=== PATIENT | female | born 1990 | race Caucasian/White ===

== ENCOUNTER 2022-07-27 06:09 | Day surgery (SDC) | payer BC ==
[2022-07-22 13:53] LABS: Basophils # (auto) 0.1 10 ^3/uL (0-0.2); Lymphocytes # (auto) 1.4 10 ^3/uL (0.4-5.4); White Blood Cell 12.4 10^3/uL (4.4-10.8)
[2022-07-22 13:54] LABS: Basophils % (auto) 0.9 % (0.0-2.0); Eosinophils # (auto) 0.1 10 ^3/uL (0-0.8); Eosinophils % (auto) 0.5 % (0.0-7.0); Hematocrit 34.1 % (36.0-46.0); Hemoglobin 11.3 g/dL (12.2-16.2); Lymphocytes % (auto) 11.3 % (10.0-50.0); Mean Corpuscular Hemoglobin 28.1 pg (28.0-32.0); Mean Corpuscular Volume 85.1 fL (80.0-100.0); Monocytes # (auto) 0.6 10 ^3/uL (0-1.3); Neutrophils # (auto) 10.2 10 ^3/uL (1.6-8.6); Neutrophils % (auto) 82.3 % (37.0-80.0); Nucleated Red Blood Cells % 0.1 %; Red Blood Cells 4.01 10^6/uL (4.0-5.20); Red Cell Distribution Width 14.2 % (11.8-14.3)
[2022-07-22 14:02] LABS: Urine Bacteria NONE SEEN /hpf (None Seen); Urine Blood 1+ /uL (Negative); Urine Specific Gravity 1.003 (1.001-1.035); Urine WBC <1 /hpf (0 - 5)
[2022-07-22 14:16] LABS: INR 0.96 (0.9-1.15); Partial Thromboplastin Time 33.5 sec (24.6-33.4)
[2022-07-22 14:23] LABS: Albumin 3.6 g/dL (3.4-5.0); Calcium 9.5 mg/dL (8.5-10.1); Potassium 4.4 mmol/L (3.5-5.1)
[2022-07-22 14:26] LABS: BUN/Creatinine Ratio 13.6 (10.0-20.0); Bilirubin, Total 0.3 mg/dL (0.2-1.0); Total Protein 7.9 g/dL (6.4-8.2)
[~2022-07-27] VITALS: Ht 165.1 cm; Wt 61.2 kg
[~2022-07-27 06:09] MED LIST: LOSA-69 PO; MYCO1TAB2 PO; NORG0.257 OR; PRE5T PO; PREN-96 OR; TACR1CAP19 OR
[2022-07-27] MEDS ORDERED: BUPIVACAINE W/ EPINEPH 0.25% INJ 50ML MDV ONE (06:43)
[2022-07-27] MEDS ORDERED: DexAMETHasone SOD PHOS 4 MG/1ML SDV INJ ONE (06:43)
[2022-07-27] MEDS ORDERED: LIDOCAINE W/ EPINEPHRINE 2% INJ 20ML VIAL ONE (06:43)
[2022-07-27] MEDS ORDERED: MIDAZOLAM HCL 2MG/2ML 2ml VIAL (1mg/ml) ONE (06:52)
[2022-07-27] MEDS ORDERED: fentaNYL CITRATE 100 MCG/2 ML VL ONE (06:52)
[2022-07-27] MEDS ORDERED: PROPOFOL 10 MG/ML 20 ML IV ONE ×2 (06:53→07:12)
[2022-07-27] MEDS ORDERED: EPINEPHrine HCL 1 MG/1 ML AMP ONE (06:53)
[2022-07-27] MEDS ORDERED: BUPIVACAINE HCL 0 ML ONE (06:53)
[2022-07-27] MEDS ORDERED: GLYCOPYRROLATE 0.2 MG/ML 1ML VIAL ONE (06:54)
[2022-07-27] MEDS ORDERED: KETOROLAC TROMETH 30 MG/ML 1ML VIAL ONE (06:54)
[2022-07-27] MEDS ORDERED: ONDANSETRON HCL 4 MG/2 ML VIAL ONE (06:54)
[2022-07-27] MEDS ORDERED: DexAMETHasone SOD PHOS 10MG/1ML VIAL INJ ONE (06:54)
[2022-07-27] MEDS ORDERED: LIDOCAINE 2% (LOCAL ANESTH.) PF 5ml SDV ONE (06:54)
[2022-07-27] MEDS ORDERED: ceFAZolin 1GM/50ML 100 ML IV ONE (07:05)
[2022-07-27] MEDS ORDERED: IOHEXOL 300 MG/ML 100ML BOTTLE IJ ONE (07:42)
[2022-07-27] MEDS ORDERED: SODIUM CHLORIDE LOCK 10 ML ONE (07:58)
[2022-07-27] MEDS ORDERED: PHENYLEPHRINE HCL 10 MG/ML VL ONE (07:58)
[2022-07-27] MEDS ORDERED: HYDR1TAB97 PO ×2 (08:59)
[2022-07-27] MEDS ORDERED: fentaNYL CITRATE 100 MCG/2 ML VL IV PRN (09:15)
[2022-07-27] MEDS ORDERED: oxyCODONE HCL 5MG TAB PO PRN (09:15)
[2022-07-27] MEDS ORDERED: ePHEDrine SULFATE 50 MG/ML AMP IV PRN (09:15)
[2022-07-27] MEDS ORDERED: NALOXONE HCL 0.4 MG/ML VIAL IV PRN (09:15)
[2022-07-27] MEDS ORDERED: LABETALOL HCL 5 MG/ML 4ML SYRINGE IV PRN (09:15)
[2022-07-27] MEDS ORDERED: PROMETHAZINE HCL 25 MG/ML 1ML IV ONE (09:15)
[2022-07-27] MEDS ORDERED: hydrALAZINE HCL 20 MG/ML VL IV PRN (09:15)
[2022-07-27] MEDS ORDERED: FLUMAZENIL 0.1 MG/ML INJ 10ML MDV IV PRN (09:15)
[2022-07-27] MEDS ORDERED: ONDANSETRON HCL 4 MG/2 ML VIAL IV PRN (09:15)
[2022-07-27] MEDS ORDERED: HYDROmorphone HCL 2 MG/ML VL/or syr IV PRN (09:15)
[2022-07-27 10:19] VITALS: BP 124/77
[2022-07-27] MEDS ORDERED: HYDR-4072 PO (11:50)
== END 2022-07-27 10:31 | disposition home or self-care (01) ==
LOC: SUR 06:09
PROVIDERS: ATTEND Orthopaedic Surgery Sports Medicine
DX: M87.852 Other osteonecrosis, left femur (principal); I12.0 Hypertensive chronic kidney disease with stage 5 chronic kidney disease or end stage renal disease; N18.6 End stage renal disease; E78.00 Pure hypercholesterolemia, unspecified; Z79.899 Other long term (current) drug therapy; Z99.2 Dependence on renal dialysis
CPT/HCPCS: 27299; 29871; 36415; 73560; 76000; 80053; 81001; 84702; 85025; 85610; 85730; C1713; J0171; J0690; J1100; J1885; J2001; J2250; J2370; J2405; J2704; J3010; Q9967; J3490

== ENCOUNTER → 2023-09-02 | Outpatient (CLI) | payer BC ==
[~2023-09-02] MED LIST changes: +HYDR-4072 PO; +LOSA-534 PO; -LOSA-69 PO
[2023-09-02 07:59] LABS: Urine Bacteria None Seen /hpf (None Seen)
[2023-09-02 08:06] LABS: Basophils # (auto) 0.1 10 ^3/uL (0-0.2); Basophils % (auto) 0.7 % (0.0-2.0); Eosinophils # (auto) 0.4 10 ^3/uL (0-0.8); Eosinophils % (auto) 4.6 % (0.0-7.0); Hematocrit 31.6 % (36.0-46.0); Hemoglobin 11.2 g/dL (12.2-16.2); Lymphocytes # (auto) 3.2 10 ^3/uL (0.4-5.4); Lymphocytes % (auto) 34.8 % (10.0-50.0); Mean Corpuscular Hemoglobin 32.7 pg (28.0-32.0); Mean Corpuscular Hgb Conc. 35.3 g/dL (32.0-36.0); Mean Corpuscular Volume 92.7 fL (80.0-100.0); Monocytes # (auto) 0.9 10 ^3/uL (0-1.3); Monocytes % (auto) 9.4 % (0.0-12.0); Neutrophils # (auto) 4.7 10 ^3/uL (1.6-8.6); Neutrophils % (auto) 50.5 % (37.0-80.0); Red Blood Cells 3.41 10^6/uL (4.0-5.20); Red Cell Distribution Width 14.6 % (11.8-14.3); White Blood Cell 9.3 10^3/uL (4.4-10.8)
[2023-09-02 08:11] LABS: Urine Blood 2+ /uL (Negative); Urine Clarity Turbid (Clear); Urine Color Light-Yellow (Yellow); Urine Hyaline Cast FEW /lpf (0 - 2); Urine Protein, UAD 1+ (Negative); Urine Specific Gravity 1.011 (1.001-1.035); Urine Urobilinogen Normal (Negative); Urine WBC 80 /hpf (0 - 5)
[2023-09-02 08:50] LABS: Protein, Urine 33.4 mg/dL (0.0-11.9)
[2023-09-02 08:53] LABS: Creatinine, Urine 112.85 mg/dL (30.0-125.0); Urine Protein/Creatinine Ratio 0.3
[2023-09-02 09:04] LABS: Albumin 4.3 g/dL (3.2-4.8); Bilirubin, Total 0.5 mg/dL (0.2-1.0); Total Protein 7.8 g/dL (5.7-8.2); Uric Acid 7.6 mg/dL (3.1-7.8)
[2023-09-02 10:38] LABS: Bilirubin, Direct 0.1 mg/dL (<0.3)
[2023-09-06 06:55] LABS: Potassium 4.8 mmol/L (3.5-5.1)
[2023-09-06 06:57] LABS: Calcium 9.8 mg/dL (8.5-10.1)
[2023-09-06 07:01] LABS: BUN/Creatinine Ratio 10.6 (10.0-20.0)
[2023-09-06 07:03] LABS: Albumin 4.6 g/dL (3.2-4.8)
[2023-09-06 07:04] LABS: Phosphorus 4.2 mg/dL (2.4-5.1)
== END | disposition home or self-care (01) ==
LOC: LAB 07:42
PROVIDERS: ATTEND Internal Medicine Nephrology
DX: N18.31 Chronic kidney disease, stage 3a (principal); E21.3 Hyperparathyroidism, unspecified; E56.9 Vitamin deficiency, unspecified; R80.9 Proteinuria, unspecified; M10.9 Gout, unspecified; D63.1 Anemia in chronic kidney disease; Z94.0 Kidney transplant status
CPT/HCPCS: 36415; 80069; 80076; 80197; 81001; 82306; 82570; 83970; 84156; 84550; 85025